=== PATIENT | female | born 1945 | race Caucasian/White ===

== ENCOUNTER 2018-09-26 14:53 | Emergency (ER) | payer MEDICARE, BC ==
[~2018-09-26] VITALS: Ht 175.3 cm; Wt 67.1 kg
[~2018-09-26 14:53] MED LIST: ACET500; ALBU90OI61 INH; AMLO5 PO; COLE1 PO; Colace100 MG PO; DIPATR; DOCU100 PO; Daily Multiple1 EACH; FLUSAL5005 INH; FLUT220OIA INH; HYDACE7.5; HYDSUL200 PO; LEFL20 PO; LEVFLO500 PO; LEVSOD100; LEVSOD88 PO; LISI10 PO; METTREX2.5; NADO40; NEBI10 PO; OXYC5 PO; PRED10 PO; PRED5 PO; PROACE100 PO; PROBIOTIC1 EAC1 PO; TIOT18 INH; TRIHYD253A PO; TRIHYD253B; ZOLP5; [UNRECOGNIZED DRUG - CODE]
[2018-09-26 15:26] LABS: BASOPHILS ABSOLUTE AUTO 0.05 K/mm3 (0.00-0.23); BASOPHILS PERCENT AUTO 1 % (0-2); EOSINOPHILS ABSOLUTE AUTO 0.07 K/mm3 (0.00-0.68); EOSINOPHILS PERCENT AUTO 1 % (0-6); Hematocrit 41.9 % (33.0-51.0); Hemoglobin 13.1 g/dL (11.5-16.0); IMMATURE GRAN ABSOLUTE AUTO 0.02 K/mm3 (0.00-0.10); IMMATURE GRAN PERCENT AUTO 0 % (0-1); LYMPHOCYTES ABSOLUTE AUTO 1.14 K/mm3 (0.84-5.20); LYMPHOCYTES PERCENT AUTO 14 % (21-46); MONOCYTES PERCENT AUTO 8 % (4-13); Mean Corpuscular HGB 29.1 pg (26.0-34.0); Mean Corpuscular HGB Conc 31.3 g/dL (31.5-36.5); Mean Corpuscular Volume 93 fL (80-100); Mean Platelet Volume 11.1 fL (9.1-12.4); NEUTROPHILS ABSOLUTE AUTO 6.42 K/mm3 (1.96-9.15); NEUTROPHILS PERCENT AUTO 77 % (41-73); Platelet Count 269 K/mm3 (150-400); RDW Coefficient Variation 14.7 % (11.7-14.2); RDW Standard Deviation 51.3 fL (35.1-46.3)
[2018-09-26 15:38] LABS: International Normalized Ratio 0.97; Prothrombin Time Results 10.3 Sec (9.7-11.5)
[2018-09-26 15:49] LABS: Alanine Aminotransfer (ALT/SGP 21 U/L (12-78); Albumin, Blood 3.7 g/dL (3.4-5.0); Alk Phos 81 U/L (50-136); Anion Gap 8 mmol/L (6-16); Aspartate Aminotrans (AST/SGOT 31 U/L (12-37); Bilirubin, Total 0.5 mg/dL (0.1-1.0); Blood Urea Nitrogen 21 mg/dL (8-24); CO2, Blood 30 mmol/L (21-32); Calcium, Blood 9.9 mg/dL (8.5-10.1); Chloride, Blood 103 mmol/L (98-108); Creatinine, Blood 0.87 mg/dL (0.40-1.00); Globulin, Blood 3.8 g/dL (2.2-4.0); Glomerular Filtration Rate >60 (60-); Glucose, Blood 90 mg/dL (70-99); Potassium, Blood 3.5 mmol/L (3.5-5.5); Sodium, Blood 141 mmol/L (136-145); Total Protein, Blood 7.5 g/dL (6.4-8.2)
[2018-09-26] MEDS ORDERED: CLON.1 PO (18:07)
[2018-09-26] MEDS ORDERED: HYDCHL12.5 PO (18:08)
[2018-09-26] MEDS ORDERED: SYNTHROID100 MC1 PO (18:10)
[2018-09-26] MEDS ORDERED: Amlodipine Bes2.5 MG PO (18:13)
== END 2018-09-26 18:27 | disposition home or self-care (01) ==
LOC: ER 14:53
PROVIDERS: Physician Assistant
DX: R04.2 Hemoptysis (principal); J44.9 Chronic obstructive pulmonary disease, unspecified; Z79.899 Other long term (current) drug therapy; Z88.8 Allergy status to other drugs, medicaments and biological substances; Z87.891 Personal history of nicotine dependence
CPT/HCPCS: 71046; 80053; 85025; 85610; 99284-25

== ENCOUNTER → 2018-11-30 | Outpatient (CLI) | payer MEDICARE, BC ==
[~2018-11-30] MED LIST changes: +Amlodipine Bes2.5 MG PO; +CLON.1 PO; +HYDCHL12.5 PO; +SYNTHROID100 MC1 PO
== END | disposition home or self-care (01) ==
LOC: LAB SHORT 11:52 → LAB 11:52 → LAB FUT 01-25 12:55 → EDSTATUS 01-25 12:55
DX: J47.9 Bronchiectasis, uncomplicated (principal); R05 Cough
CPT/HCPCS: 87070; 87077; 87185; 87205

== ENCOUNTER → 2019-08-11 | Outpatient (CLI) | payer MEDICARE, BC ==
[2019-08-11 18:19] LABS: Bilirubin, Urine Neg (Neg); Blood, Urine Neg (Neg); Glucose Qualitative, Urine Neg (Neg); Ketones, Urine Neg (Neg); Leukocyte Esterase, Urine Neg (Neg); Nitrite, Urine Neg (Neg); Protein, Urine Neg (Neg); Specific Gravity, Urine 1.005 (1.003-1.022); Urobilinogen, Urine NORM (Normal); pH, Urine 6.5 (5.0-8.0)
[2019-08-11 18:38] LABS: Appearance, Urine Clear (Clear); Color, Urine Pale Yellow (P-Yellow)
== END | disposition home or self-care (01) ==
LOC: LAB 14:00 → LAB SHORT 14:00
PROVIDERS: Family Medicine
DX: R82.90 Unspecified abnormal findings in urine (principal)
CPT/HCPCS: 81003

== ENCOUNTER → 2020-05-19 | Outpatient (CLI) | payer MEDICARE, BC ==
[2020-05-19 13:50] LABS: Bun/Creatinine Ratio 24.2 (12.0-20.0); Calcium, Blood 9.9 mg/dL (8.5-10.1); Creatinine, Blood 0.91 mg/dL (0.40-1.00); Thyroid Stimulating Hormone 0.418 uIU/mL (0.360-4.800)
== END | disposition home or self-care (01) ==
LOC: LAB SHORT 13:15 → PLD 13:15
PROVIDERS: Internal Medicine
DX: E03.9 Hypothyroidism, unspecified (principal); M85.80 Other specified disorders of bone density and structure, unspecified site; I10 Essential (primary) hypertension
CPT/HCPCS: 36415; 80048; 82306; 83036; 84443

== ENCOUNTER → 2020-12-17 | Outpatient (CLI) | payer MEDICARE, BC ==
[~2020-12-17] MED LIST changes: +HYDCHL25 PO; +METTREX2.5 PO; +PROLIA60 MG/1 ML SQ
== END ==
LOC: LAB 15:15 → LAB SHORT 15:15
DX: L08.0 Pyoderma (principal); Z88.1 Allergy status to other antibiotic agents; Z88.8 Allergy status to other drugs, medicaments and biological substances
CPT/HCPCS: 87070; 87205

== ENCOUNTER 2020-12-21 13:03 | Emergency (ER) | payer MEDICARE, BC ==
[~2020-12-21] VITALS: Ht 167.6 cm; Wt 63.5 kg
[~2020-12-21 13:03] MED LIST changes: -HYDCHL25 PO; -METTREX2.5 PO; -PROLIA60 MG/1 ML SQ
[2020-12-21 14:07] LABS: BASOPHILS ABSOLUTE AUTO 0.06 K/mm3 (0.00-0.23); BASOPHILS PERCENT AUTO 1 % (0-2); EOSINOPHILS ABSOLUTE AUTO 0.11 K/mm3 (0.00-0.68); EOSINOPHILS PERCENT AUTO 2 % (0-6); Hematocrit 35.9 % (33.0-51.0); Hemoglobin 11.7 g/dL (11.5-16.0); IMMATURE GRAN ABSOLUTE AUTO 0.04 K/mm3 (0.00-0.10); IMMATURE GRAN PERCENT AUTO 1 % (0-1); LYMPHOCYTES ABSOLUTE AUTO 0.76 K/mm3 (0.84-5.20); LYMPHOCYTES PERCENT AUTO 12 % (21-46); MONOCYTES PERCENT AUTO 11 % (4-13); Mean Corpuscular HGB 31.3 pg (26.0-34.0); Mean Corpuscular HGB Conc 32.6 g/dL (31.5-36.5); Mean Corpuscular Volume 96 fL (80-100); Mean Platelet Volume 10.1 fL (9.1-12.4); NEUTROPHILS ABSOLUTE AUTO 4.83 K/mm3 (1.96-9.15); NEUTROPHILS PERCENT AUTO 74 % (41-73); Platelet Count 251 K/mm3 (150-400); RDW Coefficient Variation 16.9 % (11.7-14.2); RDW Standard Deviation 58.8 fL (35.1-46.3); Red Blood Cell Count 3.74 M/mm3 (3.80-5.20)
[2020-12-21 14:33] LABS: Alanine Aminotransfer (ALT/SGP 34 U/L (12-78); Albumin, Blood 3.4 g/dL (3.4-5.0); Albumin/Globulin Ratio 0.9 (0.8-1.8); Alk Phos 66 U/L (50-136); Anion Gap 7 mmol/L (6-16); Aspartate Aminotrans (AST/SGOT 55 U/L (12-37); Bilirubin, Total 0.4 mg/dL (0.1-1.0); Blood Urea Nitrogen 13 mg/dL (8-24); Bun/Creatinine Ratio 16.5 (12.0-20.0); CO2, Blood 25 mmol/L (21-32); Calcium, Blood 9.5 mg/dL (8.5-10.1); Chloride, Blood 102 mmol/L (98-108); Creatinine, Blood 0.79 mg/dL (0.40-1.00); Globulin, Blood 3.6 g/dL (2.2-4.0); Glomerular Filtration Rate >60 (60-); Glucose, Blood 88 mg/dL (70-99); Potassium, Blood 3.8 mmol/L (3.5-5.5); Sodium, Blood 134 mmol/L (136-145); Troponin I <0.015 ng/mL (0.000-0.040)
[2020-12-21] MEDS ORDERED: METTREX2.5 PO (14:37)
[2020-12-21] MEDS ORDERED: TIOT18 INH (14:38)
[2020-12-21] MEDS ORDERED: PROLIA60 MG/1 ML SQ (14:39)
[2020-12-21] MEDS ORDERED: HYDCHL25 PO (16:38)
== END 2020-12-21 16:51 | disposition home or self-care (01) ==
LOC: ER 13:03
PROVIDERS: Physician Assistant
DX: I13.0 Hypertensive heart and chronic kidney disease with heart failure and stage 1 through stage 4 chronic kidney disease, or unspecified chronic kidney disease (principal); I50.9 Heart failure, unspecified; N18.2 Chronic kidney disease, stage 2 (mild); J44.9 Chronic obstructive pulmonary disease, unspecified; E78.5 Hyperlipidemia, unspecified; E03.9 Hypothyroidism, unspecified; M79.605 Pain in left leg; M79.604 Pain in right leg; I25.10 Atherosclerotic heart disease of native coronary artery without angina pectoris; Z87.891 Personal history of nicotine dependence; Z79.899 Other long term (current) drug therapy; Z88.8 Allergy status to other drugs, medicaments and biological substances
CPT/HCPCS: 36415; 71046; 80053; 83880; 84484; 85025; 93005; 93010; 93970; 99284-25

== ENCOUNTER 2021-09-29 14:33 | Day surgery (SDC) | payer MEDICARE, BC ==
[~2021-09-29] VITALS: Ht 170.2 cm; Wt 54.3 kg
[~2021-09-29 14:33] MED LIST changes: +HYDCHL25 PO; +METTREX2.5 PO; +PROLIA60 MG/1 ML SQ
--- NOTE | 2021-09-29 16:45 | NUR ---
09/29/21 1645 Gabby [place] 0.15CC EPI TO 30CC 0.5% BUPIVICAINE = 0.5%MARCAINE WITH EPI 1:200,000. 20CC INJECTED.
== END 2021-09-29 17:23 | disposition home or self-care (01) ==
LOC: ORSCSDS 14:33
PROVIDERS: Podiatrist Foot & Ankle Surgery
PROC: 0Y6P0Z1 Detachment at Right 1st Toe, High, Open Approach (ICD-10-PCS; principal; 2021-09-29 16:00)
DX: D18.00 Hemangioma unspecified site (principal); D49.89 Neoplasm of unspecified behavior of other specified sites; I10 Essential (primary) hypertension; J45.909 Unspecified asthma, uncomplicated; E78.00 Pure hypercholesterolemia, unspecified; E03.9 Hypothyroidism, unspecified; I48.0 Paroxysmal atrial fibrillation; Z87.891 Personal history of nicotine dependence; Z79.899 Other long term (current) drug therapy
CPT/HCPCS: J0171; J2250; J2704; J3010; J7120

== ENCOUNTER → 2022-01-26 | Outpatient (CLI) | payer MEDICARE, BC ==
[~2022-01-26] MED LIST changes: +FURO20; +HYDSUL200; +LEFL20; +SPIR25
[2022-01-26 13:43] LABS: BODY FLUID RBC 0.005 M/mm3 (0-0); RBC Count, Synovial Fluid 5000 /mm3 (0-0); WBC Count, Synovial Fluid 638 /mm3 (0-180)
[2022-01-26 14:34] LABS: Appearance, Synovial Fluid Cloudy (Clear); Color, Synovial Fluid Yellow (None-P Yel); Lymphs, Synovial Fluid 37 % (0-15); Monocytes/Macrophages, Synovia 18 % (0-65); Neutrophils, Synovial Fluid 45 % (0-24)
== END | disposition home or self-care (01) ==
LOC: LAB 11:15 → LAB SHORT 11:15
PROVIDERS: Physician Assistant Surgical
DX: M25.512 Pain in left shoulder (principal); M19.012 Primary osteoarthritis, left shoulder
CPT/HCPCS: 89051

== ENCOUNTER 2022-03-29 05:22 | Observation (INO) | payer MEDICARE, BC ==
[~2022-03-29] VITALS: Ht 170.2 cm; Wt 54.6 kg
[~2022-03-29 05:22] MED LIST changes: -HYDSUL200; -SPIR25; +SPIR25 PO
[2022-03-29 07:00] LABS: BASOPHILS ABSOLUTE AUTO 0.03 K/mm3 (0.00-0.23); BASOPHILS PERCENT AUTO 0 % (0-2); EOSINOPHILS ABSOLUTE AUTO 0.06 K/mm3 (0.00-0.68); EOSINOPHILS PERCENT AUTO 1 % (0-6); Hematocrit 36.6 % (33.0-51.0); Hemoglobin 11.1 g/dL (11.5-16.0); IMMATURE GRAN ABSOLUTE AUTO 0.03 K/mm3 (0.00-0.10); IMMATURE GRAN PERCENT AUTO 0 % (0-1); LYMPHOCYTES ABSOLUTE AUTO 1.88 K/mm3 (0.84-5.20); LYMPHOCYTES PERCENT AUTO 21 % (21-46); MONOCYTES ABSOLUTE AUTO 0.56 K/mm3 (0.16-1.47); MONOCYTES PERCENT AUTO 6 % (4-13); Mean Corpuscular HGB 27.8 pg (26.0-34.0); Mean Corpuscular HGB Conc 30.3 g/dL (31.5-36.5); Mean Corpuscular Volume 92 fL (80-100); Mean Platelet Volume 10.6 fL (9.1-12.4); NEUTROPHILS ABSOLUTE AUTO 6.63 K/mm3 (1.96-9.15); NEUTROPHILS PERCENT AUTO 72 % (41-73); Platelet Count 252 K/mm3 (150-400); RDW Coefficient Variation 15.5 % (11.7-14.2); RDW Standard Deviation 51.8 fL (35.1-46.3); White Blood Cell Count 9.19 K/mm3 (4.00-11.30)
[2022-03-29 07:17] LABS: Albumin, Blood 3.1 g/dL (3.4-5.0); Albumin/Globulin Ratio 0.8 (0.8-1.8); Bilirubin, Total 0.4 mg/dL (0.1-1.0); Bun/Creatinine Ratio 22.2 (12.0-20.0); Creatinine, Blood 0.95 mg/dL (0.40-1.00); Globulin, Blood 3.7 g/dL (2.2-4.0); Potassium, Blood 3.9 mmol/L (3.5-5.5); Total Protein, Blood 6.8 g/dL (6.4-8.2)
[2022-03-29 07:34] LABS: Influenza A, PCR NEGATIVE (NEGATIVE); Influenza B, PCR NEGATIVE (NEGATIVE); Resp Syncytial Virus, PCR NEGATIVE (NEGATIVE); SARS-Cov-2 (COVID-19) PCR, MMC NEGATIVE (NEGATIVE)
--- NOTE | 2022-03-29 15:55 | NUR ---
TRANSFER/SHIFT SUMMARY: PT ARRIVED VIA GURNEY FROM ED. PT A&O X4, PLEASANT AND COOPERATIVE. PT TRANSFERRED INTO BED WITH SLIDER SHEET. PT HAD IV RIGHT FOREARM, INFUSING WITH NS. PT ABLE TO GIVE MEDICAL AND MEDICATION HISTORY. PT HAS A COURSE NONPRODUCTIVE COUGH. PT ADMITTED WITH PNEMONIA AND A HX OF ASTHMA. PT ON RA, NO SOB AT THIS TIME. PT 1 PERSON TRANSFER WITH FWW AND GAIT BELT TO [facility]. PT IS WEAK AND UNSTEADY ON HER FEET. PT IN BED WITH CALL LIGHT WITHIN REACH.
[2022-03-30 05:23] LABS: Hematocrit 33.4 % (33.0-51.0); Hemoglobin 10.2 g/dL (11.5-16.0); Mean Corpuscular HGB 27.6 pg (26.0-34.0); Mean Corpuscular HGB Conc 30.5 g/dL (31.5-36.5); Mean Corpuscular Volume 91 fL (80-100); Mean Platelet Volume 11.3 fL (9.1-12.4); Platelet Count 266 K/mm3 (150-400); RDW Coefficient Variation 15.6 % (11.7-14.2); RDW Standard Deviation 51.6 fL (35.1-46.3); Red Blood Cell Count 3.69 M/mm3 (3.80-5.20); White Blood Cell Count 15.52 K/mm3 (4.00-11.30)
[2022-03-30 06:02] LABS: Bun/Creatinine Ratio 34.8 (12.0-20.0); Calcium, Blood 8.1 mg/dL (8.5-10.1); Creatinine, Blood 0.78 mg/dL (0.40-1.00); Potassium, Blood 4.1 mmol/L (3.5-5.5)
--- NOTE | 2022-03-30 06:22 | NUR ---
SHIFT SUMMARY PATIENT ALERT AND ORIENTED. SHE IS WEAK AND UNSTEADY ON HER FEET AND REQUIRES A 1 PERSON ASSIST WITH FWW AND GAIT BELT TO USE THE BEDSIDE COMMODE. MEDICATED PER EMAR FOR PAIN AND COUGH. NO ACUTE ISSUES NOTED OVERNIGHT. CALL LIGHT WITHIN REACH. REPORT GIVEN TO ONCOMING RN.
--- NOTE | 2022-03-30 10:10 | NUR ---
NURSING NOTE: SPOKE WITH DR. BREAUX, HE REQUESTED THAT PT HAVE FIRST DOSE OF ABX BEFORE BEING DISCHARGED. DR. CERVANTES ORDERED PT BE EVALUATED BEFORE BEING DISCHARGED HOME. PHYSICAL THERAPY CONTACTED TO SEE PT SOON POSSIBLE.
[2022-03-30] MEDS ORDERED: CEFD300 PO (11:12)
[2022-03-30] MEDS ORDERED: AZIT500 PO (11:12)
[2022-03-30] MEDS ORDERED: GUAI600T33 PO (11:12)
--- NOTE | 2022-03-30 15:57 | NUR ---
DISCHARGE/SHIFT SUMMARY: PT A&O PLEASANT AND COOPERATIVE. PT SEEN BY DIETIAN TO CLARIFY PROPER DIET FOR CKD. PT SEEN BY PHYSICAL THERAPY, HOME HEALTH NEEDED. PT HAS A DOCTOR APPOINTMENT ON 04/03/[address] ADDISON TO DISCUSS HOMEHEALTH. PT IV REMOVED WITH CATHTER INTACTED. PT PERSONAL BELONGINGS PACK BY FRIEND MANE. PT WAS TRANSPORTED VIA WHEELCHAIR TO THE [facility] BY [facility]LY [facility]OOD AIDE [facility]. PT TRANSFERED FROM WHEELCHAIR TO CAR WITHOUT DIFFICULTY.
--- NOTE | 2022-03-30 16:20 | NUR ---
THIS IRON [employer]ER BLASTING HAS REVIEWED AND AGREES WITH ALL NOTES AND ASSESSMENTS BY DARRELL ABRAHAM.
== END 2022-03-30 15:52 | disposition home or self-care (01) ==
LOC: ER 05:22 → ERHOLD 05:23 → MEDS 15:20
PROVIDERS: Family Medicine; Student in an Organized Health Care Education/Training Program; ADMIT Internal Medicine
DX: J18.9 Pneumonia, unspecified organism (principal); J45.909 Unspecified asthma, uncomplicated; I10 Essential (primary) hypertension; E03.9 Hypothyroidism, unspecified; M06.9 Rheumatoid arthritis, unspecified; Z88.8 Allergy status to other drugs, medicaments and biological substances; Z87.891 Personal history of nicotine dependence; N18.2 Chronic kidney disease, stage 2 (mild); Z20.822 Contact with and (suspected) exposure to COVID-19
CPT/HCPCS: 0241U; 36415; 71045; 80048; 80053; 83880; 84484; 85025; 85027; 93005; 93010; 94640; 94664; 94760; 96361; 96372; 96374; 96375; 96376; 97110; 97162; 99285-25; A9270; G0378; J0696; J1100; J1650; J7120; J7512

== ENCOUNTER → 2022-05-01 | Outpatient (CLI) | payer MEDICARE, BC ==
[~2022-05-01] MED LIST changes: +AZIT500 PO; +CEFD300 PO; +GUAI600T33 PO
[2022-05-01 15:33] LABS: BASOPHILS ABSOLUTE AUTO 0.05 K/mm3 (0.00-0.23); BASOPHILS PERCENT AUTO 1 % (0-2); EOSINOPHILS ABSOLUTE AUTO 0.05 K/mm3 (0.00-0.68); EOSINOPHILS PERCENT AUTO 1 % (0-6); Hematocrit 36.4 % (33.0-51.0); Hemoglobin 10.9 g/dL (11.5-16.0); IMMATURE GRAN ABSOLUTE AUTO 0.06 K/mm3 (0.00-0.10); IMMATURE GRAN PERCENT AUTO 1 % (0-1); LYMPHOCYTES ABSOLUTE AUTO 0.92 K/mm3 (0.84-5.20); LYMPHOCYTES PERCENT AUTO 10 % (21-46); MONOCYTES ABSOLUTE AUTO 0.46 K/mm3 (0.16-1.47); MONOCYTES PERCENT AUTO 5 % (4-13); Mean Corpuscular HGB 28.1 pg (26.0-34.0); Mean Corpuscular HGB Conc 29.9 g/dL (31.5-36.5); Mean Corpuscular Volume 94 fL (80-100); Mean Platelet Volume 11.4 fL (9.1-12.4); NEUTROPHILS ABSOLUTE AUTO 7.63 K/mm3 (1.96-9.15); NEUTROPHILS PERCENT AUTO 83 % (41-73); Platelet Count 272 K/mm3 (150-400); RDW Coefficient Variation 16.3 % (11.7-14.2); RDW Standard Deviation 55.8 fL (35.1-46.3); Red Blood Cell Count 3.88 M/mm3 (3.80-5.20); White Blood Cell Count 9.17 K/mm3 (4.00-11.30)
[2022-05-01 16:39] LABS: Bun/Creatinine Ratio 26.4 (12.0-20.0); Calcium, Blood 10.3 mg/dL (8.5-10.1); Creatinine, Blood 1.1 mg/dL (0.40-1.00); Potassium, Blood 4.2 mmol/L (3.5-5.5)
== END | disposition home or self-care (01) ==
LOC: LAB HH 13:53
PROVIDERS: Internal Medicine
DX: N18.32 Chronic kidney disease, stage 3b (principal); D63.1 Anemia in chronic kidney disease
CPT/HCPCS: 80048; 85025

== ENCOUNTER → 2022-06-02 | Outpatient (CLI) | payer MEDICARE, BC ==
[2022-06-03 10:35] LABS: Stool Occult Blood Guaiac 1 Neg (Neg)
[2022-06-03 10:36] LABS: Stool Occult Blood Guaiac 2 Neg (Neg); Stool Occult Blood Guaiac 3 Neg (Neg)
== END | disposition home or self-care (01) ==
LOC: LAB SHORT 08:00
PROVIDERS: Internal Medicine
DX: D64.9 Anemia, unspecified (principal)
CPT/HCPCS: 82272

== ENCOUNTER → 2022-07-14 | Outpatient (CLI) | payer MEDICARE, BC ==
[2022-07-14 18:57] LABS: BASOPHILS ABSOLUTE AUTO 0.06 K/mm3 (0.00-0.23); BASOPHILS PERCENT AUTO 1 % (0-2); EOSINOPHILS ABSOLUTE AUTO 0.04 K/mm3 (0.00-0.68); EOSINOPHILS PERCENT AUTO 1 % (0-6); Hematocrit 39.6 % (33.0-51.0); IMMATURE GRAN ABSOLUTE AUTO 0.03 K/mm3 (0.00-0.10); IMMATURE GRAN PERCENT AUTO 0 % (0-1); LYMPHOCYTES ABSOLUTE AUTO 1.15 K/mm3 (0.84-5.20); LYMPHOCYTES PERCENT AUTO 14 % (21-46); MONOCYTES ABSOLUTE AUTO 0.56 K/mm3 (0.16-1.47); MONOCYTES PERCENT AUTO 7 % (4-13); Mean Corpuscular HGB 27.8 pg (26.0-34.0); Mean Corpuscular HGB Conc 30.3 g/dL (31.5-36.5); Mean Corpuscular Volume 92 fL (80-100); Mean Platelet Volume 11.2 fL (9.1-12.4); NEUTROPHILS ABSOLUTE AUTO 6.24 K/mm3 (1.96-9.15); NEUTROPHILS PERCENT AUTO 77 % (41-73); Platelet Count 251 K/mm3 (150-400); RDW Standard Deviation 50.4 fL (35.1-46.3); Red Blood Cell Count 4.32 M/mm3 (3.80-5.20); White Blood Cell Count 8.08 K/mm3 (4.00-11.30)
[2022-07-14 21:33] LABS: Calcium, Blood 9.3 mg/dL (8.5-10.1); Phosphorus, Blood 3.6 mg/dL (2.5-4.9)
== END | disposition home or self-care (01) ==
LOC: LAB SHORT 14:16 → LAB FUT 05-15 14:40
PROVIDERS: Internal Medicine
DX: D64.9 Anemia, unspecified (principal); N25.81 Secondary hyperparathyroidism of renal origin
CPT/HCPCS: 36415; 82310; 83970; 84100; 85025

== ENCOUNTER → 2022-09-24 | Outpatient (CLI) | payer MEDICARE, BC | END | disposition home or self-care (01) | LOC: LAB SHORT 07:00 → LAB 07:00 | DX: D47.2 Monoclonal gammopathy (principal) | CPT/HCPCS: 81050 ==

== ENCOUNTER 2023-01-18 09:18 | Emergency (ER) | payer MEDICARE, BC ==
[~2023-01-18] VITALS: Ht 172.7 cm; Wt 56.7 kg
[~2023-01-18 09:18] MED LIST changes: -COLE1 PO; +COLESTID1 G1 PO
[2023-01-18 09:21] VITALS: BP 150/98
[2023-01-18] MEDS ORDERED: PRED1 PO (09:58)
[2023-01-18] MEDS ORDERED: MONT10T PO (10:00)
[2023-01-18] MEDS ORDERED: HYDSUL200 PO (10:02)
[2023-01-18] MEDS ORDERED: THERA-D2000 UNIT PO (10:03)
[2023-01-18] MEDS ORDERED: LEFL20 PO (11:14)
[2023-01-18] MEDS ORDERED: MILLIPRED DP5 M2 PO (11:14)
== END 2023-01-18 11:20 | disposition home or self-care (01) ==
LOC: ER 09:18
DX: M06.9 Rheumatoid arthritis, unspecified (principal); J44.9 Chronic obstructive pulmonary disease, unspecified; E03.9 Hypothyroidism, unspecified; I12.9 Hypertensive chronic kidney disease with stage 1 through stage 4 chronic kidney disease, or unspecified chronic kidney disease; N18.2 Chronic kidney disease, stage 2 (mild); Z88.8 Allergy status to other drugs, medicaments and biological substances; Z79.890 Hormone replacement therapy; Z79.899 Other long term (current) drug therapy; Z79.52 Long term (current) use of systemic steroids; Z87.891 Personal history of nicotine dependence
CPT/HCPCS: 99283